=== PATIENT | female | born 1940 | race Caucasian/White ===

== ENCOUNTER → 2017-01-29 | Outpatient (CLI) | payer OTHER ==
[~2017-01-29] MED LIST: ASPI81 PO; ATOR10 PO; ATOR10TA15 PO; CALTTAB PO; CRANCAP10 PO; ENOX40P SQ; FEMH0.5T PO; HYDR-3580 PO; HYZA100T2 PO; LEVO-86 PO; LOSA100T3 PO; MAPA500T13 PO; OMEP20TA93 PO; SYNT137T PO; VITA10004 PO; [UNRECOGNIZED DRUG - CODE] PO
== END ==
LOC: CPRE 09:36
PROVIDERS: ATTEND Orthopaedic Surgery Sports Medicine
DX: Z01.818 Encounter for other preprocedural examination (principal)

== ENCOUNTER 2017-02-15 06:53 | Inpatient (IN) | payer OTHER, MEDICARE ==
[~2017-02-15] VITALS: Ht 162.6 cm; Wt 85.7 kg
[~2017-02-15 06:53] MED LIST changes: -ASPI81 PO; -ATOR10 PO; -CALTTAB PO; -CRANCAP10 PO; -ENOX40P SQ; -FEMH0.5T PO; -HYDR-3580 PO; -HYZA100T2 PO; -SYNT137T PO; -VITA10004 PO
[2017-02-15] MEDS: LACTATED RINGER'S 1000 ML IV PRN ×2 (07:00→07:15)
[2017-02-15] MEDS ORDERED: CHLORHEXIDINE GLUCONATE 4% SOLN 120 ML BTL TOPICAL SCH (07:30)
[2017-02-15] MEDS ORDERED: TRANEXAMIC PERI-ARTICULAR 3,000 MG/NS 100 ML P-ARTICULR SCH ×2 (07:30)
[2017-02-15] MEDS ORDERED: ROPIVACAINE PERI-ARTICULAR INJECTION. P-ARTICULR SCH ×5 (07:30)
[2017-02-15] MEDS ORDERED: TRANEXAMIC ACID INJ 1,290 MG in SODIUM CHLORIDE 0.9% INJ 100 ML IV SCH (07:30)
[2017-02-15] MEDS ORDERED: ceFAZolin 2 GM PREMIX 50 ML IV SCH (07:30)
[2017-02-15] MEDS ORDERED: POVIDONE IODINE 7.5% SCRUB 118 ML BOTTLE TOPICAL SCH (07:30)
[2017-02-15] MEDS ORDERED: DEXAMETHASONE SOD PHOS 20 MG/5 ML VIAL IV SCH (07:30)
[2017-02-15] MEDS ORDERED: VANCOMYCIN 1000 MG/NS 250 ML (for <70 kg) IV SCH ×2 (07:30)
[2017-02-15] MEDS ORDERED: METOPROLOL TARTRATE 25 MG TAB PO PRN (07:45)
[2017-02-15] MEDS ORDERED: POVIDONE IODINE 5% (ANTISEPSIS KIT) 4 APPLICATIONS EACH NARE PRN (07:45)
[2017-02-15] MEDS ORDERED: CHLORHEXIDINE GLUCONATE 2 % 1 PACK (2 CLOTHS) TOPICAL PRN (07:45)
[2017-02-15] MEDS ORDERED: SODIUM CHLORID 0.9% 500 ML IV PRN (07:45)
[2017-02-15] MEDS ORDERED: BISACODYL 10 MG SUPP RECTAL PRN ×2 (08:30→13:00)
[2017-02-15] MEDS ORDERED: Post-op Orders (for Pharmacy) MISC XX ONE (08:30)
[2017-02-15] MEDS ORDERED: ZOLPIDEM TARTRATE 5 MG TAB PO PRN (08:30)
[2017-02-15] MEDS ORDERED: diphenhydrAMINE HCL 50 MG/ML VIAL IV PUSH PRN (08:30)
[2017-02-15] MEDS ORDERED: MORPHINE SULFATE 4 MG/ML INJ IV PUSH PRN (08:30)
[2017-02-15] MEDS ORDERED: ACETAMINOPHEN/HYDROcodone 325 MG/7.5 MG TAB PO PRN (08:30)
[2017-02-15] MEDS ORDERED: ONDANSETRON HCL 4 MG/2 ML VIAL IVP PRN ×2 (08:30→13:00)
[2017-02-15] MEDS ORDERED: HYDR-3288 PO (08:30)
[2017-02-15] MEDS ORDERED: SODIUM CHLORIDE 0.9% FLUSH 5 ML FLUSH IVF PRN (08:30)
[2017-02-15] MEDS ORDERED: ENOX40P SQ (08:31)
[2017-02-15] MEDS ORDERED: ASPI81CH6 CHEW (08:31)
[2017-02-15] MEDS ORDERED: ACETAMINOPHEN 1000 MG/100 ML 0 ML IV ONE (08:49)
[2017-02-15] MEDS ORDERED: GENTAMICIN SULFATE 80 MG/2 ML VIAL ONE (08:56)
[2017-02-15] MEDS ORDERED: NON-FORMULARY DRUG (Losartan-Hydrochlorothiazide 1 TAB) PO SCH (09:00)
[2017-02-15] MEDS ORDERED: SODIUM CHLORIDE 0.9% FLUSH 5 ML FLUSH IVF SCH (09:00)
[2017-02-15] MEDS ORDERED: FAMOTIDINE 20 MG/2 ML VIAL ONE (09:02)
[2017-02-15] MEDS ORDERED: PROPOFOL 500 MG/50 ML INJ 50 ML ONE (09:29)
[2017-02-15] MEDS ORDERED: PANTOPRAZOLE SOD 20 MG DELAYED RELEASE TAB PO PRN (11:00)
[2017-02-15] MEDS ORDERED: LEVOTHYROXINE SODIUM 112 MCG TAB PO SCH (11:15)
[2017-02-15] MEDS ORDERED: LEVOTHYROXINE SODIUM 25 MCG TAB PO SCH (11:15)
[2017-02-15] MEDS ORDERED: DO NOT ADM ANY ANTICOAGULANT DRUGS PRN (11:47)
[2017-02-15] MEDS: HYDROCHLOROTHIAZIDE 12.5 MG CAP PO SCH (12:00)
[2017-02-15] MEDS: LOSARTAN 50 MG TAB PO SCH (12:00)
[2017-02-15] MEDS: SODIUM CHLOR 0.9% 1000 ML INJ 1,000 ML IV SCH ×2 (12:00→21:00)
--- NOTE | 2017-02-15 12:04 | MP ---
cc: GEOVANNI LEE M.D. DATE OF SURGERY: 02/15/2017 PREOPERATIVE DIAGNOSIS Left knee osteoarthritis. POSTOPERATIVE DIAGNOSIS Left knee osteoarthritis. PROCEDURE Left total knee arthroplasty. SURGEON Dr. Geovanni Lee. THEORETICAL PHYSICIST Geovanni Woods PA-C. ANESTHESIA Spinal with an adductor canal femoral nerve block. ESTIMATED BLOOD LOSS 50 cc. COMPLICATIONS None. TOURNIQUET TIME 28 minutes at 250 mmHg. IMPLANTS DePuy Attune, size 7 posterior stabilized femoral component, size 6 rotating platform tibia baseplate, size 6 mm polyethylene tibial insert, size 35 patella. JUSTIFICATION This patient is a 76-year-old female with a history of severe end-stage osteoarthritis involving the left knee. She has severe disabling pain with standing, walking, ambulation, weightbearing activities and even severe pain at rest. She has failed greater than three months of nonoperative conservative treatment to include medication, therapy, injections, ambulatory assisted aids, home exercise program, activity modification and weight loss. X-rays of the left knee reveal severe end-stage osteoarthritis with joint space narrowing, subchondral sclerosis, subchondral cysts, osteophyte formation and varus deformity. The patient was counseled as to the risks, benefits and alternatives to a total knee arthroplasty. The risks were discussed which include but are not limited to anesthesia, bleeding, infection, damage to nerves and blood vessels, pain, stiffness, failure of components, blood clots, pulmonary embolism and even . The patient's pain is severe. She favored the benefits over the risks. She did wish to proceed with surgery. PROCEDURE IN DETAIL A written consent was obtained. The patient was identified by name and taken to the operating room. Spinal anesthesia was administered as well as a femoral nerve adductor canal block. A well-padded tourniquet was placed on the left thigh. The left lower extremity was prepped and draped using isopropyl alcohol, Hibiclens solution and ChloraPrep solution. After a timeout was performed an Esmarch bandage was used to exsanguinate the left lower extremity and tourniquet inflated to 250 mmHg. A longitudinal incision was made over the anterior aspect of the left knee. A medial parapatellar arthrotomy was performed. The patella was everted. A patellar resection guide was used to resect 9 mm of patella. The size 35 mm guide was placed. Three drill holes were placed. The 35 mm trial fit well. Attention was turned to the femur where an intramedullary guide olivia was placed and the distal femoral guide was set to remove 10 mm of distal femur 5 degrees off the anatomic valgus axis alignment. An oscillating saw was used to perform the distal femoral cut. Attention was turned to the tibia where an extramedullary tibial guide was set to remove 5 mm of the lowest portion of the medial tibial plateau. The tibial guide was pinned in place and a tibial cut was performed. A 5 mm spacer block showed full extension. Attention was turned back to the femur where an AP sizing block measured a size 7. The anterior reference 3 degree external rotation guide was used to pin a size [address] The anterior, posterior and chamfer cuts were performed. A size 7 PCL box guide was pinned in place and PCL was box cut with an oscillating saw. The medial and lateral meniscus remnants were removed as well as bone and soft tissue debris from the posterior portion of the knee. A size 6 tibial baseplate was pinned in place and the tibia was drilled and punched. Trial components were evaluated and final components cemented in place. With current components the leg could achieve full extension to 0 degrees and flexion to 140. There was no evidence of tibial lift-off, varus-valgus balance appeared appropriate and symmetric, and the patella was noted to track centrally. The tourniquet was deflated. Bovie cautery was used for hemostasis. The surgical wound was thoroughly irrigated with sterile saline pulse lavage antibiotic-impregnated solution. The arthrotomy incision was closed with #1 Vicryl suture, subcutaneous layer with 2-0 Vicryl suture. The skin was closed with Dermabond. Sterile dressing was applied. The patient tolerated the procedure well with no intraoperative complications noted. Geovanni Woods, physician rn first assistant certified, was present during the entire procedure to include patient positioning and the procedure itself. The medical necessity of the physician rn first assistant was indicated in this case due to the complexity of the procedure. He assisted with appropriate manipulation of the leg and also retraction of muscle, tendon, bone and neurovascular structures. He assisted with preparation of bone and also implantation of the prosthetic replacement. MD GENTRY Holden/LAUREN /11:26 AM 11:50 AM
[2017-02-15] MEDS ORDERED: *MEPERIDINE 25 MG INJ VIAL PERIprocedural Use ONLY ONE (12:28)
--- NOTE | 2017-02-15 12:43 | RADRPT ---
EXAM DATE/TIME: 02/15/2017 12:15 [place] COMPARISON: No previous studies available for comparison. INDICATIONS : Post operative left knee. MEDICAL HISTORY : None. SURGICAL HISTORY : ORIF right knee. ENCOUNTER: Initial ACUITY: 1 day PAIN SCORE: Non-responsive. LOCATION: Left knee. FINDINGS: Patient is status post a left total knee replacement. The prosthesis appears to be in good position. There is no acute fracture or dislocation. CONCLUSION: Status post left total replacement. No acute fracture or dislocation. Rivera Lloyd MD on February 15, 2017 at 12:37 Board Certified Radiologist. This report was verified electronically.
--- NOTE | 2017-02-15 12:55 | PD.CONS ---
HPI Service [facility] Consult Requested By DR GEOVANNI LEE Reason for Consult MEDICAL MANAGEMENT Primary Care Physician Crista Wagner MD Diagnoses: History of Present Illness Patient is a 76-year-old female who underwent a left total knee arthroplasty due to severe left knee osteoarthritis. Has history of hypothyroidism and hyperlipidemia and hypertension and GERD We have been asked to see regarding medical management Will monitor throughout the admission for any other issues Review of Systems Constitutional: DENIES: Diaphoretic episodes, Fatigue, Fever, Weight gain, Weight loss Endocrine: DENIES: Abnorml menstrual pattern, Heat/cold intolerance Eyes: DENIES: Blurred vision, Diplopia, Eye inflammation Ears, nose, mouth, throat: DENIES: Tinnitus, Hearing loss, Vertigo, Nasal discharge Respiratory: DENIES: Apneas, Cough, Snoring, Wheezing Cardiovascular: DENIES: Chest pain, Palpitations, Syncope, Dyspnea on Exertion Gastrointestinal: DENIES: Abdominal pain, Black stools, Bloody stools, Constipation Genitourinary: DENIES: Abnormal vaginal bleeding Musculoskeletal: COMPLAINS OF: Joint pain, DENIES: Muscle aches, Stiffness Integumentary: DENIES: Abnormal pigmentation, Pruritus, Rash, Nail changes Hematologic/lymphatic: DENIES: Bruising, Lymphadenopathy Immunologic/allergic: DENIES: Eczema, Urticaria Neurologic: DENIES: Abnormal gait, Headache, Localized weakness, Paresthesias Psychiatric: DENIES: Anxiety, Confusion, Mood changes, Depression Except as stated in HPI: all other systems reviewed are Neg Past Family Social History Allergies: Coded Allergies: Sulfa (Sulfonamide Antibiotics) (Verified Allergy, Severe, 02/15/17) latex (Verified Allergy, Severe, FACE SWELLING, 02/15/17) Past Medical History Hypertension Hyperlipidemia GERD Hypothyroidism Osteoarthritis Renal insufficiency stage II Past Surgical History Tubal ligation Right total knee arthroplasty Left hand surgery Reported Medications Reported Meds & Active Scripts Active Aspirin Low Dose (Aspirin) 81 Mg Chew 81 Mg CHEW BID 30 Days Lovenox Inj (Enoxaparin Sodium) 40 Mg/0.4 Ml Syr 40 Mg SQ DAILY [place] (Hydrocodone-Acetaminophen) 7.5-325 mg Tab 1-2 Tab PO Q6H PRN Reported Losartan-Hydrochlorothiazide 100-12.5 Mg Tab 1 Tab PO DAILY Mapap Extra Strength (Acetaminophen) 500 Mg Tab 1,000 Mg PO DAILY PRN Synthroid (Levothyroxine Sodium) 137 Mcg Tab 137 Mcg PO DAILY Atorvastatin (Atorvastatin Calcium) 10 Mg Tab 10 Mg PO HS Mimvey (Estradiol-Norethindrone) 1-0.5 Mg Tab 1 Tab PO HS Omeprazole 20 Mg Tab 20 Mg PO DAILY PRN Active Ordered Medications Current Medications Povidone Iodine (Betadine 7.5% Scrub) 1 applic ONCE TOPICAL ; Start 02/15/17 at 07:30; Stop 02/18/17 at 07:29 Chlorhexidine Gluconate (Hibiclens 4% Top Soln) 1 applic ONCE TOPICAL Last administered on 02/15/17 07:00; Start 02/15/17 at 07:30; Stop 02/18/17 at 07 :29 Cefazolin Sodium/ Dextrose 50 ml @ 100 mls/hr [employer] IV Last administered on 02/15/17 09:43; Start 02/15/17 at 07:30; Stop 02/18/17 at 07:29 Vancomycin HCl 1000 mg/Sodium Chloride 250 ml @ 250 mls/hr [employer] IV Last administered on 02/15/17 09:54; Start 02/15/17 at 07:30; Stop 02/18/17 at 07 :29 Tranexamic Acid 1290 mg/Sodium Chloride 112.9 ml @ 200 mls/hr ONCE IV Last administered on 02/15/17 09:57; Start 02/15/17 at 07:30; Stop 02/16/17 at 07 :29 Ropivacaine 24.63 ml/Ketorolac Tromethamine 30 mg/Epinephrine HCl 0.5 mg/ Clonidine 80 mcg/ Sodium Chloride 100 ml @ 200 mls/hr ONCE P-ARTICULR Last administered on 02/15/17 10:23; Start 02/15/17 at 07:30; Stop 02/16/17 at 07 :29 Tranexamic Acid 3000 mg/Sodium Chloride 130 ml @ 260 mls/hr ONCE P-ARTICULR Last administered on 02/15/17 10:23; Start 02/15/17 at 07:30; Stop 02/16/17 at 07:29 Dexamethasone Sodium Phosphate (Decadron Inj) 10 mg [employer] IV ; Start at 07:30 Lactated Ringer's 1,000 ml @ 30 mls/hr Q24H PRN IV SEE LABEL COMMENTS Last administered on 02/15/17 07:15; Start 02/15/17 at 07:45; Stop 02/18/17 at 07 :44 Sodium Chloride 500 ml @ 30 mls/hr [id number] PRN IV SEE LABEL COMMENTS; Start at 07:45; Stop 02/18/17 at 07:44 Metoprolol Tartrate (Lopressor) 25 mg [employer] PRN PO SEE LABEL COMMENTS; Start 02/15/17 at 07:45; Stop 02/18/17 at 07:44 Povidone Iodine (Betadine 5% Antisepsis Kit) 1 applic [employer] PRN EACH NARE SEE LABEL COMMENTS Last administered on 02/15/17 07:00; Start 02/15/17 at 07: 45; Stop 02/18/17 at 07:44 Chlorhexidine Gluconate (Chlorhexidine 2% Cloth) 3 pack [employer] PRN TOPICAL SEE LABEL COMMENTS Last administered on 02/15/17 07:00; Start 02/15/17 at 07: 45; Stop 02/18/17 at 07:44 Patient Own Medication PT OWN MED: EARLVEY ... HS PO ; Start 02/15/17 at 21:00; Status Future Hold Levothyroxine Sodium (Synthroid) 112 mcg DAILY@0600 PO ; Start 02/15/17 at 11: 15 Non-Formulary Medication 1 tab DAILY PO ; Start 02/15/17 at 09:00; Status UNV Pantoprazole Sodium (Protonix) 20 mg DAILY PRN PO GERD; Start 02/15/17 at 11: 00 Sodium Chloride 1,000 ml @ 100 mls/hr Q10H IV ; Start 02/15/17 at 11:00 IV Flush (NS Flush) 2 ml UNSCH PRN IVF FLUSH AFTER USING IV ACCESS; Start at 08:30 IV Flush (NS Flush) 2 ml BID IVF ; Start 02/15/17 at 09:00 Cefazolin Sodium 1000 mg/Sodium Chloride 100 ml @ 200 mls/hr Q6H IV ; Start at 16:00; Stop 02/16/17 at 04:29 Miscellaneous Information (Post-op Orders (for Pharmacy)) STAT ONCE XX ; Start 02/15/17 at 08:30; Stop 02/15/17 at 12:26; Status DC Enoxaparin Sodium (Lovenox Inj) 40 mg Q24H SQ ; Start 02/16/17 at 11:00; Stop 02/25/17 at 11:01 Morphine Sulfate (Morphine Inj) 3 mg Q3H PRN IV PUSH Pain >7 when off GARLAND [employer]ER; Start 02/15/17 at 08:30 Acetaminophen/ Hydrocodone Bitart ([place] 7.5-325 Mg) 1 tab Q4H PRN PO PAIN LESS THAN 5 ON SCALE; Start 02/15/17 at 08:30 Acetaminophen/ Hydrocodone Bitart ([place] 7.5-325 Mg) 2 tab Q4H PRN PO PAIN SCALE 5 TO 10; Start 02/15/17 at 08:30 Multivitamins/ Minerals Therapeutic (Theragran M Tab) 1 tab BID PO ; Start at 21:00; Stop 04/17/17 at 20:59 Ondansetron HCl (Zofran Inj) 4 mg Q6H PRN IVP NAUSEA OR VOMITING; Start at 08:30 Docusate Sodium (Colace) 100 mg BID PO ; Start 02/16/17 at 21:00 Zolpidem Tartrate (Ambien) 5 mg HS PRN PO SLEEP; Start 02/15/17 at 08:30 Bisacodyl (Dulcolax Supp) 10 mg DAILY PRN RECTAL CONSTIPATION; Start 02/15/17 at 08:30 Diphenhydramine HCl (Benadryl Inj) 25 mg Q6H PRN IV PUSH ITCHING; Start at 08:30 Acetaminophen 0 ml @ As Directed STK-MED ONCE IV ; Start 02/15/17 at 08:49; Stop 02/15/17 at 08:50; Status DC Gentamicin Sulfate (Gentamicin Inj) 240 mg STK-MED ONCE .ROUTE Last administered on 02/15/17t 10:23; Start 02/15/17 at 08:56; Stop 02/15/17 at 08 :57; Status DC Famotidine (Pepcid Inj) 20 mg STK-MED ONCE .ROUTE ; Start 02/15/17 at 09:02; Stop 02/15/17 at 09:03; Status DC Propofol 50 ml @ As Directed STK-MED ONCE .ROUTE ; Start 02/15/17 at 09:29; Stop 02/15/17 at 09:30; Status DC Losartan Potassium (Cozaar) 100 mg DAILY PO ; Start 02/15/17 at 12:00 Hydrochlorothiazide (Microzide) 12.5 mg DAILY PO ; Start 02/15/17 at 12:00 Levothyroxine Sodium (Synthroid) 25 mcg DAILY@0600 PO ; Start 02/15/17 at 11:15 Miscellaneous Information ALL NURSING DEPARTME... UNSCH PRN .XX SEE LABEL COMMENTS; Start 02/15/17 at 11:47; Stop 02/16/17 at 11:46 Meperidine HCl (*DEMEROL INJ PERIprocedural ONLY) 25 mg STK-MED ONCE .ROUTE ; Start 02/15/17 at 12:28; Stop 02/15/17 at 12:29; Status DC Family History Osteoarthritis and hypertension Social History Denies any tobacco occasional alcohol no illicits Physical Exam Vital Signs Vital Signs Date Time Temp Pulse Resp B/P (MAP) Pulse Ox O2 Delivery O2 Flow Rate FiO2 02/15/17 11:45 97.6 92 17 107/67 (80) 94 Room Air 02/15/17 07:27 98.1 116 18 160/90 (113) 97 Physical Exam GENERAL: This is a well-nourished, well-developed patient, in no apparent distress. SKIN: No rashes, ecchymoses or lesions. Cool and dry. HEAD: Atraumatic. Normocephalic. No temporal or scalp tenderness. EYES: Pupils equal round and reactive. Extraocular motions intact. No scleral icterus. No injection or drainage. ENT: Nose without bleeding, purulent drainage or septal hematoma. Throat without erythema, tonsillar hypertrophy or exudate. Uvula midline. Airway patent. NECK: Trachea midline. No JVD or lymphadenopathy. Supple, nontender, no meningeal signs. CARDIOVASCULAR: Regular rate and rhythm without murmurs, gallops, or rubs. S1- S2 no S3 or S4 RESPIRATORY: Clear to auscultation. Breath sounds equal bilaterally. No wheezes , rales, or rhonchi. GASTROINTESTINAL: Abdomen soft, non-tender, nondistended. No hepato-splenomegaly , or palpable masses. No guarding. MUSCULOSKELETAL: Extremities without clubbing, cyanosis, or edema. No joint tenderness, effusion, or edema noted. No calf tenderness. Negative Homans sign bilaterally. NEUROLOGICAL: Awake and alert. Cranial nerves II through XII intact. Motor and sensory grossly within normal limits. 4 out of 5 muscle strength in all muscle groups. Normal speech. Left lower extremity nerve block Insight and judgment is good mood and behaviors appropriate Assessment and Plan Problem List: (1) Primary localized osteoarthrosis, lower leg ICD Code: M17.10 - Unilateral primary osteoarthritis, unspecified knee Assessment and Plan Status post left total knee arthroplasty for severe osteoarthritis management per orthopedic surgery Hypertension resume home medications Hyperlipidemia statin has been stopped by orthopedics will restart Hypothyroidism continue on home medications will recheck a TSH and a free T4 GERD continue on PPI Pain control per orthopedic Nausea medication as needed A.m. labs Discussed with patient and RN Physical therapy and occupational therapy and need for SNF at discharge per or thrill and case management Code Status Full code Discussed Condition With Patient and RN Mikael Oconnor DO Feb 15, 2017 12:55
[2017-02-15] MEDS ORDERED: ACETAMINOPHEN 325 MG TAB PO PRN (13:00)
[2017-02-15] MEDS ORDERED: PROCHLORPERAZINE 25 MG SUPP RECTAL PRN (13:00)
[2017-02-15] MEDS ORDERED: NALOXONE HCL 0.4 MG/ML AMP IV PUSH PRN (13:00)
[2017-02-15] MEDS ORDERED: MAGNESIUM HYDROXIDE SUSP 30 ML CUP PO PRN (13:00)
[2017-02-15] MEDS ORDERED: SENNOSIDES 8.6 MG TAB PO PRN (13:00)
[2017-02-15] MEDS ORDERED: LACTULOSE SYRUP 20 GM/30 ML CUP PO PRN (13:00)
[2017-02-15] MEDS ORDERED: SODIUM CHLORIDE 0.9% FLUSH 10 ML FLUSH IV FLUSH PRN (13:00)
--- NOTE | 2017-02-15 13:10 | HHI.DCPOC ---
Discharge Care Plan Diagnosis: (1) Primary localized osteoarthrosis, lower leg Your Health Problems Are: Difficulty with ADL Goals to Promote Your Health * To prevent worsening of your condition and complications * To maintain your health at the optimal level Directions to Meet Your Goals Take your medications as prescribed Follow your dietary instruction Follow activity as directed Keep your appointments as scheduled Take your immunizations and boosters as scheduled If your symptoms worsen call your PCP, if no PCP go to Urgent Care Center or Emergency Room Smoking is Dangerous to Your Health. Avoid second hand smoke Call the 24-hour hour crisis hotline for domestic abuse at Julio Woods Feb 15, 2017 13:10
--- NOTE | 2017-02-15 13:11 | HHI.FF ---
Face to Face Verification Diagnosis: (1) Primary localized osteoarthrosis, lower leg Physical Therapy Gait training, Safety evaluation, Transfer training, bed to chair Knee: Total knee, Protocol: Left, Full weight bearing Left LE Weight Bearing: WB as tolerated Nursing RN: 3 days/week x 2 weeks Nursing: Mary teaching, Dressing changes Dressing Changes: Daily dressing change I have seen patient Karen Flores on 02/15/17. My clinical findings support the need for the requested home health care services because: Limited ability to care for self High risk of falls I certify that my clinical findings support that this patient is homebound because: Post-op weakness Unsteady gait/balance Julio Woods Feb 15, 2017 13:11
[2017-02-15] MEDS ORDERED: CPMMACHINE (13:14)
[2017-02-15] MEDS ORDERED: COMMODE 3-IN-11 MIS (13:14)
[2017-02-15] MEDS ORDERED: WALKER WHEELS/F1 MIS (13:14)
[2017-02-15] MEDS ORDERED: *morphine SULFATE 8 MG/ML PERIprocedure ONLY ONE (13:29)
[2017-02-15 15:02] VITALS: BP 151/85; PULSE 96; RESP 18; TEMP 96.9; O2SAT 96
[2017-02-15] MEDS: ACETAMINOPHEN/HYDROcodone 325 MG/7.5 MG TAB PO PRN ×2 (17:53→23:21)
[2017-02-15 18:19] VITALS: O2SAT 96
[2017-02-15 20:00] VITALS: BP 133/68; PULSE 74; RESP 16; TEMP 96.4; O2SAT 94
[2017-02-15] MEDS ORDERED: ESTRADIOL PO SCH (21:00)
[2017-02-15] MEDS ORDERED: NORETHINDRONE PO SCH (21:00)
[2017-02-15] MEDS: DOCUSATE SODIUM 50 MG/SENNA 8.6 MG TAB PO SCH (22:08)
[2017-02-15] MEDS: SODIUM CHLORIDE 0.9% FLUSH 10 ML FLUSH IV FLUSH SCH (23:21)
[2017-02-16] VITALS (8 sets, daily range): BP systolic 100–142; BP diastolic 60–77; PULSE 59–88; RESP 16–18; TEMP 97.1–98; O2SAT 94–97
[2017-02-16] MEDS: ACETAMINOPHEN/HYDROcodone 325 MG/7.5 MG TAB PO PRN ×5 (03:43→23:12)
[2017-02-16 05:12] LABS: AUTOMATED NEUTROPHIL # 9.1 TH/MM3 (1.8-7.7); BASOPHIL % 0.2 % (0.0-2.0); HEMATOCRIT 36.7 % (35.0-46.0); HEMO FLAGS DIFF FINAL; LYMPH % 9.7 % (9.0-44.0); LYMPHOCYTE # 1.1 TH/MM3 (1.0-4.8); MEAN CELL VOLUME 95.9 FL (80.0-100.0); MEAN CORPUSCULAR HEMOGLOBIN 32.7 PG (27.0-34.0); MEAN CORPUSCULAR HGB CONC 34.1 % (32.0-36.0); MONO % 11.4 % (0.0-8.0); NEUT % 78.7 % (16.0-70.0); PLATELET COUNT 203 TH/MM3 (150-450); RED BLOOD COUNT 3.82 MIL/MM3 (4.00-5.30); RED CELL DISTRIBUTION WIDTH 12.3 % (11.6-17.2); WHITE BLOOD COUNT 11.6 TH/MM3 (4.0-11.0)
[2017-02-16 05:31] LABS: ANION GAP 10 MEQ/L (5-15); AST (GOT) 17 U/L (15-37); BICARBONATE 22.5 MEQ/L (21.0-32.0); BLOOD UREA NITROGEN 17 MG/DL (7-18); CHLORIDE 99 MEQ/L (98-107); GLOMERULAR FILTRATION RATE 56 ML/MIN (>89); MAGNESIUM 1.8 MG/DL (1.5-2.5); POTASSIUM 4.1 MEQ/L (3.5-5.1); SODIUM (NA) 131 MEQ/L (136-145)
[2017-02-16 05:40] LABS: ALKALINE PHOSPHATASE 60 U/L (45-117); ALT (GPT) 11 U/L (10-53); FREE T4 1.47 NG/DL (0.76-1.46); TOTAL BILIRUBIN ADULT 0.4 MG/DL (0.2-1.0)
[2017-02-16] MEDS ORDERED: LEVOTHYROXINE SODIUM 112 MCG TAB PO SCH (06:00)
[2017-02-16] MEDS ORDERED: LEVOTHYROXINE SODIUM 25 MCG TAB PO SCH (06:00)
[2017-02-16] MEDS: LEVOTHYROXINE SODIUM 150 MCG TAB PO SCH (06:10)
[2017-02-16] MEDS: SODIUM CHLOR 0.9% 1000 ML INJ 1,000 ML IV SCH ×3 (06:53→20:05)
--- NOTE | 2017-02-16 07:48 | PD.ORT.PN ---
Subjective Post Op Day #: 1 Subjective Remarks doing well. pain controlled. Objective Vitals Vital Signs Date Time Temp Pulse Resp B/P (MAP) Pulse Ox O2 Delivery O2 Flow Rate FiO2 02/16/17 04:00 97.8 76 16 139/69 (92) 95 02/16/17 00:00 98.0 75 16 118/77 (91) 95 02/15/17 20:00 96.4 74 16 133/68 (89) 94 02/15/17 19:22 Room Air 02/15/17 18:19 96 02/15/17 15:02 96.9 96 18 151/85 (107) 96 02/15/17 14:30 89 19 136/82 (100) 96 Room Air 02/15/17 14:00 97.9 84 19 137/80 (99) 95 Room Air 02/15/17 13:30 84 19 136/78 (97) 95 Room Air 02/15/17 13:00 83 19 135/76 (95) 95 Room Air 02/15/17 12:45 81 17 128/76 (93) 95 Room Air 02/15/17 12:30 80 17 128/69 (88) 95 Room Air 02/15/17 12:15 79 17 128/64 (85) 95 Room Air 02/15/17 12:00 90 17 105/68 (80) 95 Room Air 02/15/17 11:45 97.6 92 17 107/67 (80) 94 Room Air I/O 02/15/17 02/15/17 02/15/17 02/16/17 02/16/17 02/16/17 07:00 15:00 23:00 07:00 15:00 23:00 Intake Total 1500 ml 360 ml 1353 ml Output Total 3350 ml Balance -1850 ml 360 ml 1353 ml Intake Oral 360 ml 360 ml IV Total 1500 ml 993 ml Output Urine Total 300 ml Estimated Blood Loss 50 ml Other 3000 ml # Voids 1 1 # Bowel Movements 0 0 Result Diagram: 02/16/179 02/16/17338 Imaging Last 24 hours Impressions Knee X-Ray 02/15/17 0828 Signed Impressions: Service Date/Time: Wednesday, February 15, 2017 12:15 - CONCLUSION: Status post left total replacement. No acute fracture or dislocation. Rivera Lloyd MD Objective Remarks in bed, nad dressing c/d/i neg corine nvi Assessment & Plan Ortho Post Op Day #: 1 Problem List: Assessment and Plan s/p L TKA wbat daily dressing changes lovenox d/c planning to snf rx in chart f/up dr. ruff 2 weeks Julio Woods Feb 16, 2017 07:48
[2017-02-16] MEDS: LOSARTAN 50 MG TAB PO SCH (09:13)
[2017-02-16] MEDS: DOCUSATE SODIUM 50 MG/SENNA 8.6 MG TAB PO SCH ×2 (09:13→20:08)
[2017-02-16] MEDS: HYDROCHLOROTHIAZIDE 12.5 MG CAP PO SCH (09:13)
[2017-02-16] MEDS: SODIUM CHLORIDE 0.9% FLUSH 10 ML FLUSH IV FLUSH SCH ×2 (09:17→20:08)
[2017-02-16] MEDS: ENOXAPARIN SODIUM 40 MG/0.4 ML SYRINGE SQ SCH (11:28)
[2017-02-16 12:53] LABS: HEMOGLOBIN Ao 85.6 %; HEMOGLOBIN F 0.8 %; HEMOGLOBIN LA1C 2.1 %; HEMOGLOBIN P3 3.8 %
--- NOTE | 2017-02-16 14:03 | HHI.PR ---
Subjective Remarks patient seen in therapy room- very motivated spontaenously voiding just got po pain meds "helping" Objective Vitals Vital Signs Date Time Temp Pulse Resp B/P (MAP) Pulse Ox O2 Delivery O2 Flow Rate FiO2 02/16/17 09:43 97 21 02/16/17 08:00 97.1 88 18 124/65 (84) 97 02/16/17 04:00 97.8 76 16 139/69 (92) 95 02/16/17 00:00 98.0 75 16 118/77 (91) 95 02/15/17 20:00 96.4 74 16 133/68 (89) 94 02/15/17 19:22 Room Air 02/15/17 18:19 96 02/15/17 15:02 96.9 96 18 151/85 (107) 96 02/15/17 14:30 89 19 136/82 (100) 96 Room Air 02/15/17 14:00 97.9 84 19 137/80 (99) 95 Room Air I/O 02/15/17 02/15/17 02/15/17 02/16/17 02/16/17 02/16/17 07:00 15:00 23:00 07:00 15:00 23:00 Intake Total 1500 ml 360 ml 1353 ml Output Total 3350 ml Balance -1850 ml 360 ml 1353 ml Intake Oral 360 ml 360 ml IV Total 1500 ml 993 ml Output Urine Total 300 ml Estimated Blood Loss 50 ml Other 3000 ml # Voids 1 1 # Bowel Movements 0 0 Result Diagram: 02/16/179 02/16/17338 Imaging Last Impressions Knee X-Ray 02/15/17827 Signed Impressions: Service Date/Time: Wednesday, February 15, 2017 12:15 - CONCLUSION: Status post left total replacement. No acute fracture or dislocation. Rivera Lloyd MD Objective Remarks awake and alert, oriented x 3 anicteric lungs clear regular rhythm abdomen soft Left LE- post op dressing in place Procedures 02/16- left TKA A/P Problem List: (1) Primary localized osteoarthrosis, lower leg ICD Code: M17.10 - Unilateral primary osteoarthritis, unspecified knee Assessment and Plan 76 yers old female Status post left total knee arthroplasty 02/16- for severe osteoarthritis management per orthopedic surgery. PT daily Hypertension resume home medications Hyperlipidemia statin has been stopped by orthopedics will restart Hypothyroidism continue on home medications - synthroid 150 mcg po daily. recheck TSH normal. FT4 minimall elevated. continue current dose and recheck as OP GERD continue on PPI MIld hyponatremia- asymptomatic- looked back from old labs- chronic. she states her synthroid was just increased recently on low dose HCTZ- will DC Pain control per orthopedic Discussed with patient Physical therapy and occupational therapy and need for SNF at discharge per or thrill and case management Possible DC tomorrow t- SNF- choice- [facility] Problem Qualifiers (1) Primary localized osteoarthrosis, lower leg: Qualified Codes: M17.12 - Unilateral primary osteoarthritis, left knee Gris Matt MD Feb 16, 2017 14:03
[2017-02-16] MEDS ORDERED: LEVO.15 PO (14:08)
[2017-02-16] MEDS: MULTIVITAMINS/MINERALS THERAPEUTIC TAB PO SCH (20:08)
[2017-02-16] MEDS ORDERED: DOCUSATE SODIUM 100 MG CAP PO SCH (21:00)
[2017-02-17] VITALS: BP 142/73; PULSE 85; RESP 16; TEMP 98.6; O2SAT 95
[2017-02-17] MEDS: ACETAMINOPHEN/HYDROcodone 325 MG/7.5 MG TAB PO PRN ×3 (03:49→11:31)
[2017-02-17] MEDS: LEVOTHYROXINE SODIUM 150 MCG TAB PO SCH (05:26)
[2017-02-17 05:36] LABS: HEMATOCRIT 37.4 % (35.0-46.0); MEAN CORPUSCULAR HEMOGLOBIN 33.2 PG (27.0-34.0); MEAN CORPUSCULAR HGB CONC 34.9 % (32.0-36.0); PLATELET COUNT 190 TH/MM3 (150-450); RED BLOOD COUNT 3.93 MIL/MM3 (4.00-5.30); RED CELL DISTRIBUTION WIDTH 12.4 % (11.6-17.2); REVIEW FLAG FINAL; WHITE BLOOD COUNT 8.8 TH/MM3 (4.0-11.0)
[2017-02-17 06:00] LABS: BICARBONATE 24.3 MEQ/L (21.0-32.0); POTASSIUM 3.5 MEQ/L (3.5-5.1)
[2017-02-17] MEDS: LOSARTAN 50 MG TAB PO SCH (07:40)
[2017-02-17] MEDS: MULTIVITAMINS/MINERALS THERAPEUTIC TAB PO SCH (07:41)
[2017-02-17] MEDS: DOCUSATE SODIUM 50 MG/SENNA 8.6 MG TAB PO SCH (07:41)
[2017-02-17] MEDS: HYDROCHLOROTHIAZIDE 12.5 MG CAP PO SCH (07:41)
[2017-02-17 07:44] VITALS: BP 145/77; PULSE 88; RESP 18; TEMP 98.3; O2SAT 94
[2017-02-17] MEDS: SODIUM CHLORIDE 0.9% FLUSH 10 ML FLUSH IV FLUSH SCH (07:44)
--- NOTE | 2017-02-17 07:48 | PD.ORT.PN ---
Subjective Post Op Day #: 2 Subjective Remarks pain tolerable. feeling a little better this am. tough time in PT yesterday. Objective Vitals Vital Signs Date Time Temp Pulse Resp B/P (MAP) Pulse Ox O2 Delivery O2 Flow Rate FiO2 02/17/17 00:00 98.6 85 16 142/73 (96) 95 02/16/17 21:39 96 02/16/17 20:00 97.7 80 16 142/77 (98) 94 02/16/17 16:00 97.1 59 18 100/60 (73) 96 02/16/17 12:00 97.1 84 18 114/60 (78) 96 02/16/17 09:43 97 21 02/16/17 08:00 97.1 88 18 124/65 (84) 97 I/O 02/16/17 02/16/17 02/16/17 02/17/17 02/17/17 02/17/17 07:00 15:00 23:00 07:00 15:00 23:00 Intake Total 1353 ml 600 ml 480 ml 360 ml Balance 1353 ml 600 ml 480 ml 360 ml Intake Oral 360 ml 600 ml 480 ml 360 ml IV Total 993 ml # Voids 1 3 1 1 # Bowel Movements 0 0 0 0 Result Diagram: 02/17/1741002/17/17410 Imaging Last 24 hours Impressions Knee X-Ray 02/15/17827 Signed Impressions: Service Date/Time: Wednesday, February 15, 2017 12:15 - CONCLUSION: Status post left total replacement. No acute fracture or dislocation. Rivera Lloyd MD Objective Remarks in chair, nad incision no erythema, no drainage neg homans nvi Assessment & Plan Ortho Post Op Day #: 2 Problem List: Assessment and Plan s/p L TKA wbat daily dressing changes lovenox d/c planning to snf - cleared when authorized by insurance rx in chart f/up dr. ruff 2 weeks Julio Woods Feb 17, 2017 07:48
--- NOTE | 2017-02-17 10:24 | HHI.PR ---
Subjective Remarks "yesterday was rough" but today did very well with physical therapy + lots of flatus no nausea or vomiting pain controlled Objective Vitals Vital Signs Date Time Temp Pulse Resp B/P (MAP) Pulse Ox O2 Delivery O2 Flow Rate FiO2 02/17/17 08:41 16 02/17/17 07:44 98.3 88 18 145/77 (99) 94 02/17/17 00:00 98.6 85 16 142/73 (96) 95 02/16/17 21:39 96 02/16/17 20:00 97.7 80 16 142/77 (98) 94 02/16/17 16:00 97.1 59 18 100/60 (73) 96 02/16/17 12:00 97.1 84 18 114/60 (78) 96 I/O 02/16/17 02/16/17 02/16/17 02/17/17 02/17/17 02/17/17 07:00 15:00 23:00 07:00 15:00 23:00 Intake Total 1353 ml 600 ml 480 ml 360 ml Balance 1353 ml 600 ml 480 ml 360 ml Intake Oral 360 ml 600 ml 480 ml 360 ml IV Total 993 ml # Voids 1 3 1 1 # Bowel Movements 0 0 0 0 Result Diagram: 02/17/1741002/17/17410 Imaging Last Impressions Knee X-Ray 02/15/17827 Signed Impressions: Service Date/Time: Wednesday, February 15, 2017 12:15 - CONCLUSION: Status post left total replacement. No acute fracture or dislocation. Rivera Lloyd MD Objective Remarks awake and alert, oriented x 3 anicteric lungs clear regular rhythm abdomen soft Left LE- post op dressing in place Procedures 02/16- left TKA A/P Problem List: (1) Primary localized osteoarthrosis, lower leg ICD Code: M17.10 - Unilateral primary osteoarthritis, unspecified knee Assessment and Plan 76 yers old female Status post left total knee arthroplasty 02/16- for severe osteoarthritis management per orthopedic surgery. PT daily Hypertension. continue on cozaar 100 mg po daily. DC HCTYZ due to chornic hyponatremia Hyperlipidemia statin has been stopped by orthopedics will restart Hypothyroidism continue on home medications - synthroid 150 mcg po daily. recheck TSH normal. FT4 minimall elevated. continue current dose and recheck as OP GERD continue on PPI Pain control per orthopedic Hyponatremia - reviewed labs from previous years- seem chornic. on HCTZ low dose- will DC asymptomatic. TSH normal -recehck i as OP History of hyperlipidemia- restart her statins on DC Discussed with patient Possible DC today- SNF- awaiting authorization Problem Qualifiers (1) Primary localized osteoarthrosis, lower leg: Qualified Codes: M17.12 - Unilateral primary osteoarthritis, left knee Gris Matt MD Feb 17, 2017 10:24
[2017-02-17] MEDS ORDERED: COZA50TA PO (10:32)
[2017-02-17] MEDS: ENOXAPARIN SODIUM 40 MG/0.4 ML SYRINGE SQ SCH (11:30)
[2017-02-17 12:00] VITALS: BP 135/68; PULSE 89; RESP 18; TEMP 97.8; O2SAT 95
[2017-02-17 12:31] VITALS: RESP 16
[2017-02-17] MEDS: SODIUM CHLOR 0.9% 1000 ML INJ 1,000 ML IV SCH (12:49)
--- NOTE | 2017-02-17 13:22 | MD ---
cc: GEOVANNI LEE ADMISSION DATE: 02/15/2017 DISCHARGE DATE: [place] Visit Search.Discharge Date ADMISSION DIAGNOSIS Severe degenerative osteoarthritis of the left knee. DISCHARGE DIAGNOSIS Severe degenerative osteoarthritis of the left knee. HISTORY OF PRESENT ILLNESS Ms. Nails is a 76-year-old female who has been a longstanding patient of Dr. Geovanni Lee at the [facility]. She is currently under the care for progressive left knee pain. She has been treated for greater than 1 year duration for this ailment. She states currently her pain is a severe, aching sensation aggravated by weightbearing activity. She has no alleviating factors, although in the past she has tried medications, bracing, physical therapy, home exercise program and multiple injections including corticosteroid injections and viscosupplementation injections without long-lasting relief of symptoms. She does have x-ray evidence of severe degenerative osteoarthritis of left knee. While in the office the patient was counseled on her diagnosis and treatment options. The risks, benefits and indications all were discussed. The patient elected to proceed with surgical intervention to include a left total knee arthroplasty. DATE OF SURGERY 02/15/2017 PROCEDURE PERFORMED Left total knee arthroplasty. POSTOP After surgery the patient was admitted to [facility] where she received appropriate medical management, pain control, DVT prophylaxis as well as physical therapy. DISCHARGE Once being discharged from the hospital, the patient is cleared to go to a half-way facility. She is in stable condition. DISCHARGE INSTRUCTIONS She may weight-bear as tolerated. The patient is to receive daily dressing change and has been instructed in appropriate wound care management. DISCHARGE MEDICATIONS She has been provided prescriptions for pain control as well as DVT prophylaxis medication. FOLLOWUP She has also been provided a follow-up appointment in approximately 2 weeks from her date of surgery. The patient has asked appropriate questions which have been answered. The patient is cleared for discharge. Dictated by: Kristofer Woods PA-C Geovanni Lee MD JWM/SSB /7:56 AM /1:19 PM
== END 2017-02-17 14:06 | DRG 470 ==
LOC: HSDI 06:53 → N06A 14:35
PROVIDERS: ADMIT Orthopaedic Surgery Sports Medicine; ATTEND Orthopaedic Surgery Sports Medicine
PROC: 3E0T3BZ Introduction of Anesthetic Agent into Peripheral Nerves and Plexi, Percutaneous Approach (ICD-10-PCS; 2017-02-15)
PROC: 0SRD0J9 Replacement of Left Knee Joint with Synthetic Substitute, Cemented, Open Approach (ICD-10-PCS; principal; 2017-02-15 09:33)
DX: M17.12 Unilateral primary osteoarthritis, left knee (principal); E87.1 Hypo-osmolality and hyponatremia; I10 Essential (primary) hypertension; E03.9 Hypothyroidism, unspecified; E78.5 Hyperlipidemia, unspecified; K21.9 Gastro-esophageal reflux disease without esophagitis; Z79.899 Other long term (current) drug therapy; Z96.651 Presence of right artificial knee joint
CPT/HCPCS: 73560; 80048; 80053; 83036; 83735; 84100; 84439; 84443; 85025; 85027; 86850; 86900; 86901; 94150; C1776; J0131; J0690; J0735; J1580; J1650; J1885; J2175; J2270; J2405; J2795; J3370; J7030; J7050; J7120; L1830

== ENCOUNTER 2017-03-27 06:56 | Inpatient (IN) | payer OTHER, MEDICARE ==
[2017-03-27] VITALS (9 sets, daily range): BP systolic 139–167; BP diastolic 79–93; PULSE 80–115; RESP 16–20; TEMP 97.6–98.9; O2SAT 92–98
[~2017-03-27] VITALS: Ht 162.6 cm; Wt 86.3 kg
[~2017-03-27 06:56] MED LIST changes: +ASPI81CH6 CHEW; +COMMODE 3-IN-11 MIS; +COZA50TA PO; +CPMMACHINE; +ENOX40P SQ; +HYDR-3288 PO; -LEVO-86 PO; +LEVO.15 PO; -LOSA100T3 PO; -MAPA500T13 PO; +WALKER WHEELS/F1 MIS
[2017-03-27] MEDS ORDERED: LOSA100T3 PO (07:23)
[2017-03-27] MEDS ORDERED: ZOFR4TAB PO (07:23)
--- NOTE | 2017-03-27 07:27 | PD ---
HPI Chief Complaint: GI Complaint Time Seen by Provider: 07:27 Travel History International Travel<30 days: No Contact w/Intl Traveler<30days: No Traveled to known affect area: No History of Present Illness HPI 76-year-old female came to the emergency room with history of constipation. Patient had her last bowel movement 6 days ago. She is also experiencing a lot of abdominal discomfort from the bloating. She has been dry heaving. Patient says in past 6 days she has not really eaten much since she has no appetite and feels very nauseous. Patient had a knee replacement surgery 4 weeks ago and has been on pain medication soon after she left the hospital and was in rehabilitation. They were giving her stool softeners and senna with the pain medication. Patient says she had been having bowel movements but did not feel like she was emptying her bowels completely. One week ago she stopped taking the pain medications and graduated to just Tylenol. She had also stopped taking MiraLAX. Since her symptoms started she called her primary care recommended her to take mag citrate which patient took but says that nothing has helped at this point. She looked very uncomfortable when she came in. Patient says she has been passing gas. No history of abdominal surgeries in the past. [facility] Past Medical History Narrative Medical List of her past medical, surgical, social and family history is reviewed from the nursing note. Arthritis: Yes Anxiety: No Depression: No Heart Rhythm Problems: No Cancer: No Cardiovascular Problems: Yes (HIGH CHOLESTEROL) High Cholesterol: Yes Chest Pain: No Congestive Heart Failure: No Diabetes: No Diminished Hearing: No Endocrine: Yes Gastrointestinal Disorders: Yes (gerd) GERD: Yes (HX OF OCCASIONAL AND WITH DARK CHOCOLATE) Genitourinary: No Hiatal Hernia: No Hypertension: Yes Immune Disorder: No Musculoskeletal: Yes (arthritis) Neurologic: No Psychiatric: No Reproductive: No Respiratory: No Thyroid Disease: Yes (HYPOTHYROIDISM) Influenza Vaccination: Yes ?: Not Past Surgical History Abdominal Surgery: No AICD: No Cardiac Surgery: No Ear Surgery: No Endocrine Surgery: No Eye Surgery: No Genitourinary Surgery: No Gynecologic Surgery: Yes (TUBAL LIGATION) Joint Replacement: Yes (right knee/left knee) Oral Surgery: No Pacemaker: No Thoracic Surgery: No Other Surgery: Yes Social History Alcohol Use: No Tobacco Use: No Substance Use: No Allergies-Medications (Allergen,Severity, Reaction): Coded Allergies: Sulfa (Sulfonamide Antibiotics) (Verified Allergy, Severe, 03/27/17) latex (Verified Allergy, Severe, FACE SWELLING, 03/27/17) Comments History of allergies reviewed from the nursing note. Reported Meds & Prescriptions Reported Meds & Active Scripts Active Synthroid (Levothyroxine Sodium) 150 Mcg Tab 150 Mcg PO DAILY@0600 30 Days Reported Losartan (Losartan Potassium) 100 Mg Tab 100 Mg PO DAILY Zofran (Ondansetron HCl) 4 Mg Tab 4 Mg PO Q12HR PRN Losartan-Hydrochlorothiazide 100-12.5 Mg Tab 1 Tab PO DAILY Atorvastatin (Atorvastatin Calcium) 10 Mg Tab 10 Mg PO HS Mimvey (Estradiol-Norethindrone) 1-0.5 Mg Tab 1 Tab PO HS Narrative Medication List of her home medications reviewed from the nursing note. Review of Systems Except as stated in HPI: all other systems reviewed are Neg Gastrointestinal: Positive: Nausea, Abdominal Pain, Constipation Physical Exam Narrative GENERAL: Awake, alert, moderate distress SKIN: Focused skin assessment warm/dry. HEAD: Atraumatic. Normocephalic. EYES: Pupils equal and round. No scleral icterus. No injection or drainage. ENT: No nasal bleeding or discharge. Mucous membranes pink and moist. NECK: Trachea midline. No JVD. CARDIOVASCULAR: Regular rate and rhythm. No murmur appreciated. RESPIRATORY: No accessory muscle use. Clear to auscultation. Breath sounds equal bilaterally. GASTROINTESTINAL: Abdomen is tense and distended and generalized tenderness. Hepatic and splenic margins not palpable. Rectal vault is empty MUSCULOSKELETAL: No obvious deformities. No clubbing. No cyanosis. No edema. NEUROLOGICAL: Awake and alert. No obvious cranial nerve deficits. Motor grossly within normal limits. Normal speech. PSYCHIATRIC: Appropriate mood and affect; insight and judgment normal. Data Data Last Documented VS Orders Orders Urinalysis - C+S If Indicated (03/27/17 07:11) Complete Blood Count With Diff (03/27/17 07:34) Comprehensive Metabolic Panel (03/27/17 07:34) Lipase (03/27/17 07:34) Ct Abd/Pel W/O Iv Contrast (03/27/17 07:34) Iv Access Insert/Monitor (03/27/17 07:34) Ecg Monitoring (03/27/17 07:34) Oximetry (03/27/17 07:34) Ondansetron Inj (Zofran Inj) (03/27/17 07:45) Sodium Chloride 0.9% Flush (Ns Flush) (03/27/17 07:45) Ketorolac Inj (Toradol Inj) (03/27/17 07:45) Sodium Chlorid 0.9% 500 Ml Inj (Ns 500 M (03/27/17 07:45) Enema (03/27/17 08:34) Sodium Chlorid 0.9% 500 Ml Inj (Ns 500 M (03/27/17 09:30) Admit To Inpatient (03/27/17 ) Vital Signs (Adult) Q4H (03/27/17 10:23) Activity Oob With Assistance (03/27/17 10:23) Bedside Glucose GREGORIO.CSUGAR (03/27/17 10:23) Sodium Chlor 0.9% 1000 Ml Inj (Ns 1000 M (03/27/17 11:00) Sodium Chloride 0.9% Flush (Ns Flush) (03/27/17 10:30) Sodium Chloride 0.9% Flush (Ns Flush) (03/27/17 21:00) Acetaminophen (Tylenol) (03/27/17 10:30) Ondansetron Inj (Zofran Inj) (03/27/17 10:30) Temazepam (Restoril) (03/27/17 10:30) Basic Metabolic Panel (Bmp) (03/28/17 06:00) Complete Blood Count With Diff (03/28/17 06:00) Resp Oxygen Hiram C Titrat 1-4 L (03/27/17 ) Pt Request For Service (03/27/17 10:23) Case Management Consult (03/27/17 10:23) Scd Bilateral/Knee High GREGORIO.BID (03/27/17 10:23) Sage Bilateral/Knee High GREGORIO.QSHIFT (03/27/17 10:23) Naloxone Inj (Narcan Inj) (03/27/17 10:30) Docusate Sodium-Senna (Latia-Colace) (03/27/17 21:00) Magnesium Hydroxide Liq (Milk Of Magnesi (03/27/17 10:30) Sennosides (Senokot) (03/27/17 10:30) Bisacodyl Supp (Dulcolax Supp) (03/27/17 10:30) Lactulose Liq (Lactulose Liq) (03/27/17 10:30) Inpatient Certification (03/27/17 ) Potassium Chloride (Kcl) (03/27/17 10:30) Admit Order (Ed Use Only) (03/27/17 10:24) Labs Laboratory Tests Test 03/27/17 07:10 03/27/17 07:40 Urine Collection Type CLEAN CATCH Urine Color YELLOW Urine Turbidity CLOUDY Urine pH 5.5 Urine Specific [place] 1.024 Urine Protein TRACE mg/dL Urine Glucose (UA) NEG mg/dL Urine Ketones 15 mg/dL Urine Occult Blood NEG Urine Nitrite NEG Urine Bilirubin NEG Urine Leukocyte Esterase NEG Urine WBC 0-2 /hpf Urine Squamous Epithelial Cells 0-5 /hpf Urine Amorphous Sediment LARGE Microscopic Urinalysis Comment CULT NOT INDICATED White Blood Count 11.3 TH/MM3 Red Blood Count 4.50 MIL/MM3 Hemoglobin 13.7 GM/DL Hematocrit 41.1 % Mean Corpuscular Volume 91.2 FL Mean Corpuscular Hemoglobin 30.4 PG Mean Corpuscular Hemoglobin Concent 33.3 % Red Cell Distribution Width 11.8 % Platelet Count 345 TH/MM3 Mean Platelet Volume 7.3 FL Neutrophils (%) (Auto) 77.7 % Lymphocytes (%) (Auto) 7.3 % Monocytes (%) (Auto) 11.1 % Eosinophils (%) (Auto) 0.1 % Basophils (%) (Auto) 3.8 % Neutrophils # (Auto) 8.9 TH/MM3 Lymphocytes # (Auto) 0.8 TH/MM3 Monocytes # (Auto) 1.2 TH/MM3 Eosinophils # (Auto) 0.0 TH/MM3 Basophils # (Auto) 0.4 TH/MM3 CBC Comment DIFF FINAL Differential Comment Blood Urea Nitrogen 16 MG/DL Creatinine 1.00 MG/DL Random Glucose 135 MG/DL Total Protein 6.7 GM/DL Albumin 3.1 GM/DL Calcium Level 9.2 MG/DL Alkaline Phosphatase 72 U/L Aspartate Amino Transf (AST/SGOT) 27 U/L Alanine Aminotransferase (ALT/SGPT) 18 U/L Total Bilirubin 0.7 MG/DL Sodium Level 122 MEQ/L Potassium Level 3.3 MEQ/L Chloride Level 90 MEQ/L Carbon Dioxide Level 20.4 MEQ/L Anion Gap 12 MEQ/L Estimat Glomerular Filtration Rate 54 ML/MIN Lipase 97 U/L [facility] Medical Decision Making Medical Screen Exam Complete: Yes Emergency Medical Condition: Yes Medical Record Reviewed: Yes Differential Diagnosis Obstipation, small bowel obstruction, perforation Narrative Course 9:[address] scan was done which shows as per the radiologist's excessive amount of stool in the entire colon. Patient was initially given Toradol and Zofran. Blood test result is back and she has significant hyponatremia and hypochloremia. However patient does have history of hyponatremia. Patient says that while she was in rehabilitation this was an ongoing issue. She is getting 500 cc of IV fluid bolus and I will order for another 500 cc. I have ordered for soapsuds enema which patient has received. At this point awaiting to see if patient does have a good stool output in which case I will be comfortable discharging her home. If that does not happen patient might need to be admitted. 10:20 AM patient sat on the toilet for more than half an hour but has not had any solid stool in her bowel movement. At this point given the significance of the stool burden in her colon and the fact that the enema was unsuccessful I have decided to admit her. She will require possibly GoLYTELY or something similar continuous to eventually make her empty her bowels. Awaiting for the hospitalist call back. Procedures EKG Prior to Arrival: No Diagnosis Primary Impression: Abdominal pain Qualified Codes: R10.84 - Generalized abdominal pain Additional Impressions: Obstipation Hyponatremia Admitting Information Admitting Physician Requests: Admit Scripts Sennosides-Docusate Sodium (Gnp Senna Plus 8.6-50 mg) 8.6 Mg-50 Mg Tab 2 TAB PO BID for Constipation, #60 TAB Prov: Miranda Castle MD 03/28/17 Anisa Mejias MD Mar 27, 2017 07:27
[2017-03-27 07:30] LABS: BLOOD, URINE NEG (NEG); GLUCOSE,URINE NEG (NEG); KETONE, URINE 15 mg/dL (NEG); NITRITE,URINE NEG (NEG); PH, URINE 5.5 (5.0-8.5); URINE LEUKOCYTE ESTERASE NEG (NEG)
[2017-03-27 07:31] LABS: BILIRUBIN, URINE NEG (NEG)
[2017-03-27 07:32] LABS: URINE COLOR YELLOW (YELLW/STRAW)
[2017-03-27 07:35] LABS: AMORPHOUS SEDIMENT, URINE LARGE; SQUAMOUS EPITHELIAL CELL URINE 0-5 /hpf (0-5); WBC, URINE 0-2 /hpf (0-5)
[2017-03-27] MEDS ORDERED: SODIUM CHLORID 0.9% 500 ML INJ 500 ML IV ONE ×2 (07:45→09:30)
[2017-03-27] MEDS ORDERED: SODIUM CHLORIDE 0.9% FLUSH 10 ML FLUSH IV FLUSH PRN ×2 (07:45→10:30)
[2017-03-27] MEDS ORDERED: KETOROLAC TROMETHAMINE 30 MG/ML (IVP) VIAL IVP ONE (07:45)
[2017-03-27] MEDS ORDERED: ONDANSETRON HCL 4 MG/2 ML VIAL IVP ONE (07:45)
[2017-03-27 07:49] LABS: AUTOMATED NEUTROPHIL # 8.9 TH/MM3 (1.8-7.7); BASOPHIL # 0.4 TH/MM3 (0-0.2); BASOPHIL % 3.8 % (0.0-2.0); EOSINOPHIL % 0.1 % (0.0-4.0); HEMATOCRIT 41.1 % (35.0-46.0); HEMOGLOBIN 13.7 GM/DL (11.6-15.3); LYMPH % 7.3 % (9.0-44.0); LYMPHOCYTE # 0.8 TH/MM3 (1.0-4.8); MEAN CELL VOLUME 91.2 FL (80.0-100.0); MEAN CORPUSCULAR HEMOGLOBIN 30.4 PG (27.0-34.0); MEAN CORPUSCULAR HGB CONC 33.3 % (32.0-36.0); MEAN PLATELET VOLUME 7.3 FL (7.0-11.0); MONO % 11.1 % (0.0-8.0); MONOCYTE # 1.2 TH/MM3 (0-0.9); NEUT % 77.7 % (16.0-70.0); PLATELET COUNT 345 TH/MM3 (150-450); RED CELL DISTRIBUTION WIDTH 11.8 % (11.6-17.2); WHITE BLOOD COUNT 11.3 TH/MM3 (4.0-11.0)
[2017-03-27 08:09] LABS: ALBUMIN 3.1 GM/DL (3.4-5.0); ALT (GPT) 18 U/L (10-53); AST (GOT) 27 U/L (15-37); BICARBONATE 20.4 MEQ/L (21.0-32.0); BLOOD UREA NITROGEN 16 MG/DL (7-18); CALCIUM 9.2 MG/DL (8.5-10.1); CHLORIDE 90 MEQ/L (98-107); GLOMERULAR FILTRATION RATE 54 ML/MIN (>89); GLUCOSE,RANDOM 135 MG/DL (74-106); LIPASE 97 U/L (73-393); TOTAL BILIRUBIN ADULT 0.7 MG/DL (0.2-1.0); TOTAL PROTEIN 6.7 GM/DL (6.4-8.2)
[2017-03-27 08:10] LABS: SODIUM (NA) 122 MEQ/L (136-145)
[2017-03-27 08:11] LABS: ALKALINE PHOSPHATASE 72 U/L (45-117)
--- NOTE | 2017-03-27 08:28 | RADRPT ---
EXAM DATE/TIME: 03/27/2017 08:00 [place] COMPARISON: No previous studies available for comparison. INDICATIONS : Constipation for five days, nausea. ORAL CONTRAST: No oral contrast ingested. RADIATION DOSE: 21.93 CTDIvol (mGy) MEDICAL HISTORY : Gastroesophageal reflux disease. Hypercholesterolemia. Hypertension.Chronic renal disease. SURGICAL HISTORY : Tubal ligation. ENCOUNTER: Initial ACUITY: 4 - 6 days PAIN SCALE: 3/10 LOCATION: Bilateral diffuse abdomen. TECHNIQUE: Volumetric scanning of the abdomen and pelvis was performed. Using automated exposure control and ad justment of the mA and/or kV according to patient size, radiation dose was kept as low as reasonably achievable to obtain optimal diagnostic quality images. DICOM format image data is available electro nically for review and comparison. FINDINGS: LOWER LUNGS: The visualized lower lungs are clear. LIVER: There is a nonspecific 1.8 cm hypodensity seen at the posterior aspect of the right lobe of the liver . No calcified gallstones are seen. SPLEEN: Normal size without lesion. PANCREAS: Within normal limits. KIDNEYS: Normal in size and shape. There is no mass, stone, or hydronephrosis. ADRENAL GLANDS: Within normal limits. VASCULAR: There is no aortic aneurysm. Arterial calcifications are present. BOWEL/MESENTERY: There is a large amount of stool seen throughout much of the colon. There is an area of soft tissue t hickening in the distal sigmoid colon. An underlying mass could be present. Soft tissue density measu res approximately 3 cm. There are scattered colonic diverticula present. There is a mild amount of fl uid seen in the peritoneal cavity in the pelvis. ABDOMINAL WALL: Within normal limits. RETROPERITONEUM: There is no lymphadenopathy. BLADDER: No wall thickening or mass. REPRODUCTIVE: Within normal limits. INGUINAL: There is no lymphadenopathy or hernia. MUSCULOSKELETAL: There is degenerative change in lumbar spine. There is a levocurvature of the lumbar spine. CONCLUSION: 1. Very large amount of stool seen throughout the colon. There is an area of soft tissue thickening o f the distal sigmoid colon. An underlying mass cannot be excluded. 2. Nonspecific 1.8 cm hypodensity in the liver. Statistically, this likely represents a cyst or heman gioma. However it is nonspecific on this noncontrast CT examination. Jon Kemp MD on March 27, 2017 at 8:20 Board Certified Radiologist. This report was verified electronically.
[2017-03-27] MEDS ORDERED: SENNOSIDES 8.6 MG TAB PO PRN (10:30)
[2017-03-27] MEDS ORDERED: ACETAMINOPHEN 325 MG TAB PO PRN (10:30)
[2017-03-27] MEDS ORDERED: LACTULOSE SYRUP 20 GM/30 ML CUP PO PRN (10:30)
[2017-03-27] MEDS ORDERED: POTASSIUM CHLORIDE 10 MEQ CONTROLLED RELEASE TAB PO ONE (10:30)
[2017-03-27] MEDS ORDERED: MAGNESIUM HYDROXIDE SUSP 30 ML CUP PO PRN (10:30)
[2017-03-27] MEDS ORDERED: TEMAZEPAM 15 MG CAP PO PRN (10:30)
[2017-03-27] MEDS ORDERED: NALOXONE HCL 0.4 MG/ML AMP IV PUSH PRN (10:30)
[2017-03-27] MEDS ORDERED: BISACODYL 10 MG SUPP RECTAL PRN (10:30)
[2017-03-27] MEDS ORDERED: LOSA100T PO (11:14)
[2017-03-27] MEDS: SODIUM CHLOR 0.9% 1000 ML INJ 1,000 ML IV SCH ×2 (11:17→21:48)
[2017-03-27] MEDS ORDERED: PEG (High)/E-LYTE SOLN 4000 ML BTL PO ONE (12:00)
--- NOTE | 2017-03-27 14:23 | HHI.HP ---
[facility] Crista Wagner MD Admission Diagnosis Obstipation, hyponatremia, abdominal pain Diagnoses: (1) Constipation Diagnosis: Principal Chief Complaint: Constipation. Travel History International Travel<30 Days: No Contact w/Intl Traveler <30 Da: No Traveled to Known Affected Are: No History of Present Illness Written by Adriana Fitch, acting as scribe for Dr. Castle on 03/27/17 at 14:17. Ms. Flores is a 76-year-old female with a known medical history of hyperlipidemia, GERD, HTN and thyroid disease who presented to the ED with complaints of constipation x 6 days. Patient states that she underwent a left knee arthroplasty and since then has been on narcotics for pain control and has been less mobile. Patient states that up until 6 days ago she has been actually doing really well since the surgery and passing gas and having normal BMs. She states that since 6 days ago she began to notice worsening abdominal pain and cramping with associated constipation. She attempted to take Miralax and Senna without any relief. Last evening she was up all night with dry heaving. States she never actually vomiting. Denies any recent fever or chills. Denies any active gas at this time and no BM x 6 days. Currently complaining of nausea with some relief with Zofran. Denies any diarrhea or hematochezia. Review of Systems Constitutional: DENIES: Fever, Chills Eyes: DENIES: Blurred vision, Diplopia Respiratory: DENIES: Cough, Shortness of breath Cardiovascular: DENIES: Chest pain Gastrointestinal: COMPLAINS OF: Abdominal pain, Constipation, Nausea, Vomiting , DENIES: Diarrhea Integumentary: DENIES: Pruritus Hematologic/lymphatic: DENIES: Bruising Psychiatric: DENIES: Anxiety Except as stated in HPI: all other systems reviewed are Neg Past Family Social History Past Medical History Arthritis Hyperlipidemia GERD Past Surgical History Bilateral knee surgeries Reported Medications Active Synthroid (Levothyroxine Sodium) 150 Mcg Tab 150 Mcg PO DAILY@0600 30 Days Reported Losartan (Losartan Potassium) 100 Mg Tab 100 Mg PO DAILY Zofran (Ondansetron HCl) 4 Mg Tab 4 Mg PO Q12HR PRN Losartan-Hydrochlorothiazide 100-12.5 Mg Tab 1 Tab PO DAILY Atorvastatin (Atorvastatin Calcium) 10 Mg Tab 10 Mg PO HS Mimvey (Estradiol-Norethindrone) 1-0.5 Mg Tab 1 Tab PO HS Allergies: Coded Allergies: Sulfa (Sulfonamide Antibiotics) (Verified Allergy, Severe, 03/27/17) latex (Verified Allergy, Severe, FACE SWELLING, 03/27/17) Active Ordered Medications Current Medications Medications (Trade) Dose Ordered Sig/[place] Route Start Time Stop Time Status Last Admin Sodium Chloride 1,000 ml @ 100 mls/hr Q10H IV 03/27/17 11:00 03/27/17 11:17 (NS Flush) 2 ml UNSCH PRN IV FLUSH 03/27/17 10:30 (NS Flush) 2 ml BID IV FLUSH 03/27/17 21:00 (Tylenol) 650 mg Q4H PRN PO 03/27/17 10:30 (Zofran Inj) 4 mg Q6H PRN IVP 03/27/17 10:30 (Restoril) 15 mg HS PRN PO 03/27/17 10:30 (Narcan Inj) 0.4 mg UNSCH PRN IV PUSH 03/27/17 10:30 (Latia-Colace) 1 tab BID PO 03/27/17 21:00 (Milk Of Magnesia Liq) 30 ml Q12H PRN PO 03/27/17 10:30 (Senokot) 17.2 mg Q12H PRN PO 03/27/17 10:30 (Dulcolax Supp) 10 mg DAILY PRN RECTAL 03/27/17 10:30 (Lactulose Liq) 30 ml DAILY PRN PO 03/27/17 10:30 03/27/17 13:44 Family History Denies any significant family medical history. Social History Denies any current tobacco use. Quit smoking 15 years ago. Denies any alcohol use. Denies any illicit drug use. Physical Exam Vital Signs Vital Signs Date Time Temp Pulse Resp B/P (MAP) Pulse Ox O2 Delivery O2 Flow Rate FiO2 03/27/17 11:19 03/27/17 09:38 80 18 167/79 (108) 97 Room Air 03/27/17 08:46 18 03/27/17 07:56 90 18 139/81 (100) 98 Room Air 03/27/17 07:06 97.6 115 16 145/84 (104) 97 Physical Exam GENERAL: This is a well-nourished, well-developed female patient, in no apparent distress. SKIN: No rashes, ecchymoses or lesions. Warm and dry. HEAD: Atraumatic. Normocephalic. EYES: Pupils equal round and reactive. Extraocular motions intact. No scleral icterus. No injection or drainage. ENT: Nose without bleeding, purulent drainage or septal hematoma. Throat without erythema, tonsillar hypertrophy or exudate. Uvula midline. Airway patent. NECK: Trachea midline. No JVD. Supple. CARDIOVASCULAR: Regular rate and rhythm without murmurs, gallops, or rubs. RESPIRATORY: Clear to auscultation. Breath sounds equal bilaterally. No wheezes , rales, or rhonchi. GASTROINTESTINAL: Abdomen soft, non-tender, nondistended. No guarding. Active BS x 4 q. MUSCULOSKELETAL: Extremities without clubbing, cyanosis, or edema. No joint tenderness, effusion, or edema noted. NEUROLOGICAL: Awake and alert. Cranial nerves II through XII intact. Motor and sensory grossly within normal limits. Five out of 5 muscle strength in all muscle groups. Normal speech. Laboratory Laboratory Tests Test 03/27/17 07:10 03/27/17 07:40 Urine Collection Type CLEAN CATCH Urine Color YELLOW Urine Turbidity CLOUDY Urine pH 5.5 Urine Specific [place] 1.024 Urine Protein TRACE Urine Glucose (UA) NEG Urine Ketones 15 Urine Occult Blood NEG Urine Nitrite NEG Urine Bilirubin NEG Urine Leukocyte Esterase NEG Urine WBC 0-2 Urine Squamous Epithelial Cells 0-5 Urine Amorphous Sediment LARGE Microscopic Urinalysis Comment CULT NOT INDICATED White Blood Count 11.3 Red Blood Count 4.50 Hemoglobin 13.7 Hematocrit 41.1 Mean Corpuscular Volume 91.2 Mean Corpuscular Hemoglobin 30.4 Mean Corpuscular Hemoglobin Concent 33.3 Red Cell Distribution Width 11.8 Platelet Count 345 Mean Platelet Volume 7.3 Neutrophils (%) (Auto) 77.7 Lymphocytes (%) (Auto) 7.3 Monocytes (%) (Auto) 11.1 Eosinophils (%) (Auto) 0.1 Basophils (%) (Auto) 3.8 Neutrophils # (Auto) 8.9 Lymphocytes # (Auto) 0.8 Monocytes # (Auto) 1.2 Eosinophils # (Auto) 0.0 Basophils # (Auto) 0.4 CBC Comment DIFF FINAL Differential Comment Blood Urea Nitrogen 16 Creatinine 1.00 Random Glucose 135 Total Protein 6.7 Albumin 3.1 Calcium Level 9.2 Alkaline Phosphatase 72 Aspartate Amino Transf (AST/SGOT) 27 Alanine Aminotransferase (ALT/SGPT) 18 Total Bilirubin 0.7 Sodium Level 122 Potassium Level 3.3 Chloride Level 90 Carbon Dioxide Level 20.4 Anion Gap 12 Estimat Glomerular Filtration Rate 54 Lipase 97 Result Diagram: 03/27/17 0740 03/27/1740 Imaging Last Impressions Abdomen/Pelvis CT 03/27/1734 Signed Impressions: Service Date/Time: Wednesday, March 27, 2017 08:00 - CONCLUSION: 1. Very large amount of stool seen throughout the colon. There is an area of soft tissue thickening of the distal sigmoid colon. An underlying mass cannot be excluded. 2. Nonspecific 1.8 cm hypodensity in the liver. Statistically, this likely represents a cyst or hemangioma. However it is nonspecific on this noncontrast CT examination. Jon Kemp MD Septic Shock Reassessment Septic shock perfusion: reassessment completed Caprini VTE Risk Assessment Caprini VTE Risk Assessment: Mod/High Risk (score >= 2) Caprini Risk Assessment Model Point Value = 1 Point Value = 2 Point Value = 3 Point Value = 5 Age 41-60 Minor surgery BMI > 25 kg/m2 Swollen legs Varicose veins or History of unexplained or recurrent spontaneous Oral contraceptives or hormone replacement Sepsis (< 1 month) Serious lung disease, including pneumonia (< 1 month) Abnormal pulmonary function Acute myocardial infarction Congestive heart failure (< 1 month) History of inflammatory bowel disease Medical patient at bed rest Age 61-74 Arthroscopic surgery Major open surgery (> 45 min) Laparoscopic surgery (> 45 min) Malignancy Confined to bed (> 72 hours) Immobilizing plaster cast Central venous access Age >= 75 History of VTE Family history of VTE Factor V Leiden Prothrombin [id number] Lupus anticoagulant Anticardiolipin antibodies Elevated serum homocysteine Heparin-induced thrombocytopenia Other congenital or acquired thrombophilia Stroke (< 1 month) Elective arthroplasty Hip, pelvis, or leg fracture Acute spinal cord injury (< 1 month) Prophylaxis Regimen Total Risk Factor Score Risk Level Prophylaxis Regimen 0-1 Low Early ambulation 2 Moderate Order ONE of the following: *Sequential Compression Device (SCD) *Heparin 5000 units SQ BID 3-4 Higher Order ONE of the following medications: *Heparin 5000 units SQ TID *Enoxaparin/Lovenox 40 mg SQ daily (WT < 150 kg, CrCl > 30 mL/min) *Enoxaparin/Lovenox 30 mg SQ daily (WT < 150 kg, CrCl > 10-29 mL/min) *Enoxaparin/Lovenox 30 mg SQ BID (WT < 150 kg, CrCl > 30 mL/min) AND/OR *Sequential Compression Device (SCD) 5 or more Highest Order ONE of the following medications: *Heparin 5000 units SQ TID (Preferred with Epidurals) *Enoxaparin/Lovenox 40 mg SQ daily (WT < 150 kg, CrCl > 30 mL/min) *Enoxaparin/Lovenox 30 mg SQ daily (WT < 150 kg, CrCl > 10-29 mL/min) *Enoxaparin/Lovenox 30 mg SQ BID (WT < 150 kg, CrCl > 30 mL/min) AND *Sequential Compression Device (SCD) Assessment and Plan Assessment and Plan Ms. Flores is a 76-year-old female with a known medical history of hyperlipidemia, GERD, HTN and thyroid disease who presented to the ED with complaints of constipation x 5 days. Severe obstipation suspect secondary to recent orthopedic surgery and narcotic use Abdominal/Pelvis CT reviewed showing very large amount of stool seen throughout the colon. An area of soft tissue thickening of the distal sigmoid colon. Nonspecific 1.8 cm hypodensity in the liver. Ensure hydration, continue IVF. Status post 1 L NS bolus. Given Lactulose. Available PRN. Colyte ordered, patient agreeable to attempt drinking. Monitor and document BM progress. Control nausea, Zofran available PRN. Supplemental O2 as needed. Supportive care. Patient is not tolerating Colyte, has been vomiting. Will consult GI for further recommendations, appreciate input. Severe hyponatremia and mild hypokalemia suspect secondary to dehydration - Na 122. K 3.3. Continue IVF. K was replaced. Follow BMP in am. Supportive care. Hypertension, chronic: BP mildly elevated. Continue home medications, monitor BP trends. Hyperlipidemia, chronic: Continue home statin. Thyroid disease: Continue home Levothyroxine. DVT prophylaxis: SCDs. This note was transcribed by MEGA Guerrero. I, Dr. Miranda Castle personally performed the history, physical exam, and medical decision making; and confirmed the accuracy of the information in the transcribed note. Authenticated by Dr. Miranda Castle on 03/27/17 at 14:17. Physician Certification 2 Midnight Certification Type: Admission for Inpatient Services Order for Inpatient Services The services are ordered in accordance with Medicare regulations or non- Medicare payer requirements, as applicable. In the case of services not specified as inpatient-only, they are appropriately provided as inpatient services in accordance with the 2-midnight benchmark. Estimated LOS (days): 2 2 days is the estimated time the patient will need to remain in the hospital, assuming treatment plan goals are met and no additional complications. Post-Hospital Plan: Home Adriana Fitch Mar 27, 2017 14:23 Miranda Castle MD Mar 27, 2017 15:43
[2017-03-27] MEDS: ONDANSETRON HCL 4 MG/2 ML VIAL IVP PRN ×2 (15:02→21:53)
[2017-03-27] MEDS ORDERED: cloNIDine HCL 0.1 MG TAB PO PRN (16:45)
[2017-03-27] MEDS ORDERED: MAGNESIUM CITRATE SOLN 300 ML BTL PO ONE (17:30)
[2017-03-27] MEDS ORDERED: ATORVASTATIN 10 MG TAB PO SCH (21:00)
[2017-03-27] MEDS ORDERED: ESTRADIOL NORETHINDRONE PO SCH (21:00)
[2017-03-27] MEDS: SODIUM CHLORIDE 0.9% FLUSH 10 ML FLUSH IV FLUSH SCH (21:00)
[2017-03-27] MEDS: DOCUSATE SODIUM 50 MG/SENNA 8.6 MG TAB PO SCH (21:49)
[2017-03-28 04:00] VITALS: BP_SYST 134; BP_SYST 157; BP_DIAS 56; BP_DIAS 95; PULSE 81; PULSE 84; RESP 16; RESP 23; TEMP 98.9; O2SAT 92; O2SAT 98
[2017-03-28] MEDS: ONDANSETRON HCL 4 MG/2 ML VIAL IVP PRN (05:39)
[2017-03-28] MEDS ORDERED: LEVOTHYROXINE SODIUM 150 MCG TAB PO SCH (06:00)
[2017-03-28] MEDS: SODIUM CHLOR 0.9% 1000 ML INJ 1,000 ML IV SCH (06:16)
[2017-03-28 06:41] LABS: AUTOMATED NEUTROPHIL # 8.9 TH/MM3 (1.8-7.7); BASOPHIL % 0.4 % (0.0-2.0); EOSINOPHIL % 0.2 % (0.0-4.0); HEMATOCRIT 39.4 % (35.0-46.0); MEAN CELL VOLUME 93.4 FL (80.0-100.0); MEAN CORPUSCULAR HEMOGLOBIN 30.9 PG (27.0-34.0); MONO % 13.9 % (0.0-8.0); MONOCYTE # 1.6 TH/MM3 (0-0.9); NEUT % 76.5 % (16.0-70.0); PLATELET COUNT 326 TH/MM3 (150-450); RED BLOOD COUNT 4.22 MIL/MM3 (4.00-5.30); RED CELL DISTRIBUTION WIDTH 11.6 % (11.6-17.2); WHITE BLOOD COUNT 11.5 TH/MM3 (4.0-11.0)
[2017-03-28 06:57] LABS: BICARBONATE 22.7 MEQ/L (21.0-32.0); CALCIUM 8.4 MG/DL (8.5-10.1)
[2017-03-28 07:01] LABS: CREATININE 0.82 MG/DL (0.50-1.00)
[2017-03-28 08:00] VITALS: BP 144/74; PULSE 99; RESP 12; TEMP 96.5; O2SAT 97
[2017-03-28 08:10] VITALS: O2SAT 96
[2017-03-28] MEDS: SODIUM CHLORIDE 0.9% FLUSH 10 ML FLUSH IV FLUSH SCH (09:00)
[2017-03-28] MEDS ORDERED: LOSARTAN 50 MG TAB PO SCH (09:00)
[2017-03-28] MEDS: DOCUSATE SODIUM 50 MG/SENNA 8.6 MG TAB PO SCH (09:00)
[2017-03-28] MEDS ORDERED: POTASSIUM CHLORIDE 10 MEQ CONTROLLED RELEASE TAB PO ONE ×2 (09:15→10:00)
--- NOTE | 2017-03-28 09:45 | HHI.PR ---
Subjective Remarks Had multiple BMs , no more constipation. Feels much gabriel No n/v/d/c. Able to eat, keeps food down. Wants to go home. Objective Vitals Vital Signs Date Time Temp Pulse Resp B/P (MAP) Pulse Ox O2 Delivery O2 Flow Rate FiO2 03/28/17 04:00 98.9 84 16 134/95 (108) 98 03/27/17 23:41 98.0 86 20 145/80 (101) 96 03/27/17 20:51 95 21 03/27/17 20:00 98.6 88 18 144/93 (110) 97 03/27/17 17:02 98.9 84 146/80 (102) 92 03/27/17 14:29 97 03/27/17 11:31 98.6 82 141/81 (101) 95 03/27/17 11:19 I/O 03/27/17 03/27/17 03/27/17 03/28/17 03/28/17 03/28/17 07:00 15:00 23:00 07:00 15:00 23:00 Intake Total 1000 ml 1000 ml Balance 1000 ml 1000 ml Intake IV Total 1000 ml 1000 ml # Voids 2 3 4 # Bowel Movements 1 3 Result Diagram: 03/28/17 0557 03/28/17 0557 Imaging Last Impressions Abdomen/Pelvis CT 03/27/17 0734 Signed Impressions: Service Date/Time: Monday, March 27, 2017 08:00 - CONCLUSION: 1. Very large amount of stool seen throughout the colon. There is an area of soft tissue thickening of the distal sigmoid colon. An underlying mass cannot be excluded. 2. Nonspecific 1.8 cm hypodensity in the liver. Statistically, this likely represents a cyst or hemangioma. However it is nonspecific on this noncontrast CT examination. Jon Kemp MD Objective Remarks GENERAL: This is a well-nourished, well-developed female patient, in no apparent distress. CARDIOVASCULAR: Regular rate and rhythm without murmurs, gallops, or rubs. RESPIRATORY: Clear to auscultation. Breath sounds equal bilaterally. No wheezes , rales, or rhonchi. GASTROINTESTINAL: Abdomen soft, non-tender, nondistended. No guarding. Active BS x 4 q. MUSCULOSKELETAL: Extremities without clubbing, cyanosis, or edema. No joint tenderness, effusion, or edema noted. NEUROLOGICAL: Awake and alert. Cranial nerves II through XII intact. Motor and sensory grossly within normal limits. Five out of 5 muscle strength in all muscle groups. Normal speech. A/P Problem List: (1) Constipation ICD Code: K59.00 - Constipation, unspecified Assessment and Plan Ms. Flores is a 76-year-old female with a known medical history of hyperlipidemia, GERD, HTN and thyroid disease who presented to the ED with complaints of constipation x 5 days. Severe obstipation suspect secondary to recent orthopedic surgery and narcotic use. Resolved had 4 BMs Abdominal/Pelvis CT reviewed showing very large amount of stool seen throughout the colon. An area of soft tissue thickening of the distal sigmoid colon. Nonspecific 1.8 cm hypodensity in the liver. Ensure hydration, continue IVF. Status post 1 L NS bolus. Given Lactulose, MOM, mag citrate. Available PRN. Colyte ordered, patient agreeable to attempt drinking. Monitor and document BM progress. Control nausea, Zofran available PRN. Supplemental O2 as needed. Supportive care. Patient is not tolerating Colyte, has been vomiting. Will consult GI for further recommendations, appreciate input. Severe hyponatremia and mild hypokalemia suspect secondary to dehydration - Na 122. K 3.3. Continue IVF. K was replaced. Follow BMP in am. Supportive care. Hypertension, chronic: BP mildly elevated. Continue home medications, monitor BP trends. Hyperlipidemia, chronic: Continue home statin. Thyroid disease: Continue home Levothyroxine. DVT prophylaxis: SCDs. Discharge Planning DC home in stable condition to follow up as OP with PCP and consultants. Diet: Healthy heart diet Activity ad fran as tolerated Meds per med reconciliations Miranda Castle MD Mar 28, 2017 09:45
[2017-03-28] MEDS ORDERED: PERI PO (09:49)
--- NOTE | 2017-03-28 09:49 | HHI.DCPOC ---
Discharge Care Plan Goals to Promote Your Health * To prevent worsening of your condition and complications * To maintain your health at the optimal level Directions to Meet Your Goals Take your medications as prescribed Follow your dietary instruction Follow activity as directed Keep your appointments as scheduled Take your immunizations and boosters as scheduled If your symptoms worsen call your PCP, if no PCP go to Urgent Care Center or Emergency Room Smoking is Dangerous to Your Health. Avoid second hand smoke Call the 24-hour hour crisis hotline for domestic abuse at Miranda Castle MD Mar 28, 2017 09:49
--- NOTE | 2017-03-28 10:52 | HHI.FF ---
Face to Face Verification Diagnosis: (1) Obstipation (2) Hyponatremia Physical Therapy Order: Evaluate and Treat, Improve ambulation Home Health Nursing Order: Medical education Medication education-adverse effect Nursing assessment with vital signs I have seen patient Karen Flores on 03/28/17. My clinical findings support the need for the requested home health care services because: Deconditioned w/ increased weakness I certify that my clinical findings support that this patient is homebound because: Unsteady gait/balance Adriana Fitch Mar 28, 2017 10:52 Miranda Castle MD Mar 29, 2017 00:36
[2017-03-28 12:00] VITALS: BP 141/88; PULSE 86; RESP 14; TEMP 97.4; O2SAT 99
== END 2017-03-28 14:25 | disposition home health service (06) | DRG 392 ==
LOC: PHED 06:56 → PHEDA 10:26 → PHICU 11:23 → PH3A 03-28 05:59
PROVIDERS: ADMIT Hospitalist; ATTEND Hospitalist
DX: K59.03 Drug induced constipation (principal); E87.1 Hypo-osmolality and hyponatremia; E87.8 Other disorders of electrolyte and fluid balance, not elsewhere classified; E86.0 Dehydration; I10 Essential (primary) hypertension; E03.9 Hypothyroidism, unspecified; E78.5 Hyperlipidemia, unspecified; K21.9 Gastro-esophageal reflux disease without esophagitis; E87.6 Hypokalemia; D18.09 Hemangioma of other sites; K63.89 Other specified diseases of intestine; R11.0 Nausea; T40.605A Adverse effect of unspecified narcotics, initial encounter; Z88.2 Allergy status to sulfonamides; Z91.040 Latex allergy status; Z96.653 Presence of artificial knee joint, bilateral
CPT/HCPCS: 74176; 80048; 80053; 81001; 82948; 83690; 85025; 96361; 96374; 96375; J1885; J2405; J7030; J7040